=== PATIENT | female | born 1975 | race Hispanic/Latino ===

== ENCOUNTER 2023-10-03 15:08 | Emergency (ER) | payer BC, SELFPAY ==
[2023-10-03 15:53] VITALS: BP 149/97; PULSE 79; RESP 18; TEMP 36.1; O2SAT 100
--- NOTE | 2023-10-03 16:31 | ED.URI ---
HPI - URI/Sore Throat General Chief Complaint: Upper Respiratory Infection Stated Complaint: lt earache,congestion Time Seen by Provider: 10/03/23 16:19 Source: patient and RN notes reviewed Mode of arrival: ambulatory Limitations: no limitations History of Present Illness HPI Narrative: Patient presents today complaining of left lower dental pain and left ear pain x1 week. She is unsure if her pain is originating in the ear or the tooth. She has tried aspirin, ibuprofen, and Excedrin without much relief, and currently rates her pain 6/10. Related Data Home Medications Medication Instructions Recorded Confirmed alprazolam 0.5 mg tablet mg 10/03/23 bupropion HCl 300 mg 24 hr tablet, mg PO 10/03/23 extended release venlafaxine 150 mg mg PO 10/03/23 capsule,extended release 24 hr Allergies Allergy/AdvReac Type Severity Reaction Status Date / Time No Known Allergies Allergy Verified 10/03/23 16:37 Review of Systems Review of Systems: CONSTITUTIONAL: Denies body aches, fever, chills, or sweats. EYES: Denies visual changes, redness, or discharge. ENT: Denies rhinorrhea, congestion, sore throat. + left ear pain, left tooth pain CARDIOVASCULAR: Denies chest pain, palpitations, or edema. RESPIRATORY: Denies cough or dyspnea. GASTROINTESTINAL: Denies abdominal pain, nausea, vomiting, or diarrhea. GENITOURINARY: Denies dysuria or hematuria. SKIN: Denies rash, itching, or wounds. MUSCULOSKELETAL: Denies back pain, joint pain, or myalgia. NEUROLOGIC: Denies headache, numbness, tingling, or weakness. PSYCH: Denies depression or anxiety. [facility] Family History Family History Mother Hypertension Other Family history of arthritis Family history of congenital heart disease Family history of malignant neoplasm Social History Social History Smoking status: Never smoker Second hand tobacco smoke exposure: No Smoking end date: 10/17/13 Alcohol intake: current Comments At time of signature, I have reviewed and agree with nursing past medical, surgical, social and family history unless otherwise noted. Please see nursing chart for further information. There is no relevant family history pertinent to the presenting complaint Exam Narrative: GENERAL: Well-appearing, well-nourished, and in no acute distress. HEAD: Normocephalic, atraumatic. EYES: EOMI. No redness or drainage. Conjunctivae normal. ENT: Mucous membranes pink and moist. Nares clear. No rhinorrhea. TMs normal bilaterally. Throat normal. Uvula midline. Teeth are nontender to percussion. Gingiva is normal. No trismus. Patient has tenderness to the left temporomandibular joint. No crepitus or edema noted. NECK: Normal AROM. Supple. No lymphadenopathy. CHEST: No respiratory distress. Clear to auscultation. HEART: Regular rate and rhythm. No murmur appreciated. EXTREMITIES: Normal range of motion. No edema. SKIN: Warm, dry, no rash. Capillary refill normal. Normal skin turgor. NEURO: No focal deficits. Alert and oriented x3. Gait steady. PSYCH: Normal affect. No signs of depression or anxiety. Course Course Level of Care: Express Care Visit Vital Signs Vital signs: Vital Signs Temperature 97.0 F L 10/03/23 15:53 Pulse Rate 79 10/03/23 15:53 Respiratory Rate 18 10/03/23 15:53 Blood Pressure 149/97 H 10/03/23 15:53 Pulse Oximetry 100 10/03/23 15:53 Oxygen Delivery Room Air 10/03/23 15:53 Temperature 97.0 F L 10/03/23 15:53 Pulse Rate 79 10/03/23 15:53 Respiratory Rate 18 10/03/23 15:53 Blood Pressure 149/97 H 10/03/23 15:53 Pulse Oximetry 100 10/03/23 15:53 Oxygen Delivery Room Air 10/03/23 15:53 Reviewed MDM - URI/Sore Throat MDM Narrative Medical decision making narrative: Patient has been diagnosed with left TM joint pain and will be treated wi
== END 2023-10-03 16:50 | disposition home or self-care (01) ==
PROVIDERS: Emergency Provider Nurse Practitioner; PCP Family Medicine
DX: M26.622 Arthralgia of left temporomandibular joint (principal); Z79.899 Other long term (current) drug therapy
CPT/HCPCS: 99213; G0463